=== PATIENT | female | born 1965 | race Two or more races ===

== ENCOUNTER 2017-02-17 16:02 | Emergency (ER) | payer MEDICAID ==
[~2017-02-17] VITALS: Ht 167.6 cm; Wt 72.0 kg
[2017-02-17] MEDS ORDERED: ACETAMINOPHEN 500MG TABLET PO ONE (17:45)
[2017-02-17 19:01] LABS: CLARITY URINE TURBID (CLEAR); COLOR URINE YELLOW (YELLOW); GLUCOSE URINE NEGATIVE (NEGATIVE); KETONES URINE NEGATIVE (NEGATIVE); LEUKOCYTE ESTERASE URINE 3+ (NEGATIVE); NITRITE URINE NEGATIVE (NEGATIVE); OCCULT BLOOD URINE 3+ (NEGATIVE); PH URINE 5.5 (4.5-8.0); PROTEIN URINE 2+ (NEGATIVE); SPECIFIC GRAVITY URINE 1.026 (1.005-1.030)
[2017-02-17 19:30] VITALS: BP 153/93
== END 2017-02-17 20:45 | disposition home or self-care (01) ==
LOC: ER 16:35
DX: N39.0 Urinary tract infection, site not specified (principal); R51 Headache
CPT/HCPCS: 81001; 99283

== ENCOUNTER 2018-01-01 09:23 | Emergency (ER) | payer MEDICAID ==
[~2018-01-01] VITALS: Ht 165.1 cm; Wt 72.0 kg
[2018-01-01] MEDS ORDERED: SODIUM CHLORIDE 0.9% 1,000 ML IV ONE (10:14)
[2018-01-01] MEDS ORDERED: FAMOTIDINE 20MG/2ML VIAL IV STA (10:14)
[2018-01-01] MEDS ORDERED: MORPHINE SULFATE 4 MG/ML CPJ (NOT FOR IM USE) IV STA (10:14)
[2018-01-01] MEDS ORDERED: ONDANSETRON HCL 4MG/2ML INJ IV STA (10:14)
[2018-01-01 10:59] LABS: BASOPHILS % 0.6 % (0.0-2.0); HEMATOCRIT. 41.9 % (36.0-48.0); HEMOGLOBIN. 14.2 g/dL (12.0-16.0); MEAN CORPUSCULAR HEMOGLOBIN 33.6 pg (28.0-32.0); MEAN CORPUSCULAR VOLUME 98.9 fL (81.0-99.0); MEAN PLATELET VOLUME 9.3 fl (7.4-10.4); MONOCYTES % 5.5 % (2.0-8.0); NEUTROPHILS % 73.9 % (40.0-76.0); PLATELET 268 x1000/uL (130-400); RED BLOOD CELL COUNT 4.23 mill/uL (4.2-5.4); RED CELL DISTRIBUTION WIDTH 13.7 % (11.6-14.6)
[2018-01-01 11:11] LABS: CHLORIDE 104 mEq/L (98-107)
[2018-01-01 11:15] LABS: PROTHROMBIN TIME 9.6 sec (9.1-11.1)
[2018-01-01 11:18] LABS: ETHANOL BLOOD < 10 mg/dL
[2018-01-01 12:44] LABS: CLARITY URINE CLEAR (CLEAR); COLOR URINE YELLOW (YELLOW); KETONES URINE NEGATIVE (NEGATIVE); LEUKOCYTE ESTERASE URINE NEGATIVE (NEGATIVE); NITRITE URINE NEGATIVE (NEGATIVE); OCCULT BLOOD URINE TRACE (NEGATIVE); PROTEIN URINE NEGATIVE (NEGATIVE); SPECIFIC GRAVITY URINE 1.009 (1.005-1.030)
[2018-01-01 13:10] LABS: METHADONE URINE SCREEN NEGATIVE (NEGATIVE); OPIATES URINE SCREEN NEGATIVE (NEGATIVE); PHENCYCLIDINE URINE SCREEN NEGATIVE (NEGATIVE)
[2018-01-01 13:11] LABS: *AMPHETAMINES SCREEN URINE NEGATIVE (NEGATIVE); *BARBITURATES SCREEN URINE NEGATIVE (NEGATIVE); *BENZODIAZEPINES SCREEN URINE NEGATIVE (NEGATIVE); *COCAINE SCREEN URINE NEGATIVE (NEGATIVE); CANNABINOID URINE SCREEN PRESUMTIVE POSITIVE (NEGATIVE)
[2018-01-01 13:53] VITALS: BP 135/87
== END 2018-01-01 14:02 | disposition home or self-care (01) ==
LOC: ER 09:23
DX: K29.70 Gastritis, unspecified, without bleeding (principal); N39.0 Urinary tract infection, site not specified; F17.200 Nicotine dependence, unspecified, uncomplicated; I10 Essential (primary) hypertension; Z88.6 Allergy status to analgesic agent
CPT/HCPCS: 36415; 71045; 74176; 80053; 80305; 81003; 83690; 84484; 85025; 85610; 93005; 96361; 96374; 96375; 99285; G0482; J2270; J2405; J3490; J7030; Z7610

== ENCOUNTER 2018-07-18 08:34 | Emergency (ER) | payer MEDICAID ==
[~2018-07-18] VITALS: Ht 167.6 cm; Wt 73.0 kg
[2018-07-18] MEDS ORDERED: ONDANSETRON HCL 4MG/2ML INJ IV STA (10:18)
[2018-07-18] MEDS ORDERED: MORPHINE SULFATE 4 MG/ML CPJ (NOT FOR IM USE) IV STA (10:18)
[2018-07-18 10:45] LABS: CHLORIDE 111 mEq/L (98-107)
[2018-07-18 10:47] LABS: CLARITY URINE CLOUDY (CLEAR); COLOR URINE YELLOW (YELLOW); KETONES URINE NEGATIVE (NEGATIVE); LEUKOCYTE ESTERASE URINE TRACE (NEGATIVE); NITRITE URINE NEGATIVE (NEGATIVE); OCCULT BLOOD URINE TRACE (NEGATIVE); PROTEIN URINE NEGATIVE (NEGATIVE); SPECIFIC GRAVITY URINE 1.015 (1.005-1.030); UROBILINOGEN URINE 0.2 E.U./dL (0.2-1.0)
[2018-07-18 10:59] LABS: BASOPHILS % 1.1 % (0.0-2.0); EOSINOPHILS % 1.8 % (0.0-5.0); HEMATOCRIT. 39.4 % (36.0-48.0); HEMOGLOBIN. 13.1 g/dL (12.0-16.0); LYMPHOCYTES % 32.4 % (20.0-50.0); MEAN CORPUSCULAR HEMOGLOBIN 32.7 pg (28.0-32.0); MEAN CORPUSCULAR VOLUME 98.2 fL (81.0-99.0); MEAN PLATELET VOLUME 8.6 fl (7.4-10.4); MONOCYTES % 6.4 % (2.0-8.0); NEUTROPHILS % 58.3 % (40.0-76.0); PLATELET 260 x1000/uL (130-400); RED BLOOD CELL COUNT 4.01 mill/uL (4.2-5.4)
[2018-07-18] MEDS ORDERED: IOHEXOL-300 100 ML BOTTLE ONE (12:06)
[2018-07-18 14:29] VITALS: BP 148/86
== END 2018-07-18 14:32 | disposition home or self-care (01) ==
LOC: ER 08:34
DX: K57.92 Diverticulitis of intestine, part unspecified, without perforation or abscess without bleeding (principal); N39.0 Urinary tract infection, site not specified; I10 Essential (primary) hypertension; Z88.5 Allergy status to narcotic agent
CPT/HCPCS: 36415; 74177; 80053; 81003; 81025; 83605; 83690; 85025; 93005; 96374; 96375; 99284; J2270; J2405; Q9967

== ENCOUNTER 2024-04-09 16:13 | Emergency (ER) | payer MEDICAID, OTHER ==
[~2024-04-09] VITALS: Ht 170.2 cm; Wt 68.0 kg
[2024-04-09 16:17] VITALS: BP 120/80; TEMP 98.9; O2SAT 100
[2024-04-09 16:21] VITALS: PULSE 89; RESP 18; O2SAT 99
== END 2024-04-09 21:36 | disposition home or self-care (01) ==
LOC: ER 16:13
DX: B34.9 Viral infection, unspecified (principal); I10 Essential (primary) hypertension; Z79.899 Other long term (current) drug therapy; Z88.6 Allergy status to analgesic agent
CPT/HCPCS: 71045; 99283

== ENCOUNTER 2024-11-07 11:42 | Emergency (ER) | payer OTHER ==
[~2024-11-07] VITALS: Ht 170.2 cm; Wt 74.0 kg
[2024-11-07 12:05] VITALS: TEMP 36.8; O2SAT 98
[2024-11-07 15:08] LABS: BASOPHILS % 0.8 % (0.0-2.0); EOSINOPHILS % 1.0 % (0.0-5.0); HEMATOCRIT. 39.3 % (36.0-48.0); HEMOGLOBIN. 13.3 g/dL (12.0-16.0); LYMPHOCYTES % 38.6 % (20.0-50.0); MEAN PLATELET VOLUME 8.4 fl (7.4-10.4); MONOCYTES % 5.4 % (2.0-8.0); NEUTROPHILS % 54.2 % (40.0-76.0); PLATELET 282 x1000/uL (130-400); RED BLOOD CELL COUNT 4.01 mill/uL (4.2-5.4); RED CELL DISTRIBUTION WIDTH 13.2 % (11.6-14.6)
[2024-11-07 15:20] LABS: CREATININE 0.7 mg/dL (0.6-1.0); UREA NITROGEN BLOOD 7 mg/dL (9-23)
[2024-11-07 15:32] LABS: INR 1.0
[2024-11-07] MEDS ORDERED: OXYM30SP26 BOTHNSTRLS (16:04)
[2024-11-07] MEDS: ACETAMINOPHEN 325MG TABLET PO ONE (16:15)
[2024-11-07 16:46] VITALS: BP 147/90; PULSE 62; RESP 18; O2SAT 100
== END 2024-11-07 16:50 | disposition home or self-care (01) ==
LOC: ER 11:42
DX: J33.8 Other polyp of sinus (principal); I10 Essential (primary) hypertension; Z88.6 Allergy status to analgesic agent
CPT/HCPCS: 36415; 70486; 80048; 85025; 99284